=== PATIENT | male | born 1970 | race Two or more races ===

== ENCOUNTER 2022-03-09 01:59 | Emergency (ER) | payer SELFPAY ==
[~2022-03-09] VITALS: Ht 170.2 cm; Wt 84.0 kg
[2022-03-09 07:15] VITALS: BP 112/68
[2022-03-09] MEDS ORDERED: ceFAZolin 1GM/50ML 100 ML IV ONE (07:15)
[2022-03-09] MEDS ORDERED: ONDANSETRON HCL 4 MG/2 ML VIAL IM ONE (07:15)
[2022-03-09] MEDS ORDERED: MORPHINE SULFATE INJ 2 MG/ml SYRG IM ONE (07:15)
[2022-03-09] MEDS ORDERED: CLIN300C8 PO (07:22)
[2022-03-09] MEDS ORDERED: IBUP800T27 PO (07:22)
[2022-03-09] MEDS ORDERED: CEPH-509 PO (07:22)
[2022-03-09] MEDS ORDERED: LIDOCAINE 1% HCL (LOCAL ANESTH.) INJ 20ML MDV ONE (08:03)
== END 2022-03-09 10:40 | disposition home or self-care (01) ==
LOC: ER 01:59
DX: S62.664B Nondisplaced fracture of distal phalanx of right ring finger, initial encounter for open fracture (principal); I10 Essential (primary) hypertension; W22.8XXA Striking against or struck by other objects, initial encounter; Y93.89 Activity, other specified; Y92.89 Other specified places as the place of occurrence of the external cause; Y99.8 Other external cause status
CPT/HCPCS: 29130; 73130; 96365; 96372; 99284; J0690; J2001; J2270; J2405; 12002